=== PATIENT | female | born 1990 | race Caucasian/White ===

== ENCOUNTER → 2018-11-25 | Outpatient (CLI) | payer MEDICAID ==
--- NOTE | 2018-11-25 17:21 | RAD ---
EXAM: Pelvic sonogram. HISTORY: Uncertain dates. TECHNIQUE: Sonographic imaging of a gravid uterus was performed. COMPARISON: None. FINDINGS: There is a single fetus in breech presentation with a heart rate of 150 bpm. The biparietal diameter is 3.01 cm, corresponding with 15 weeks and 4 days. The head circumference is 11.73 cm, corresponding with 15 weeks and 5 days. The abdominal circumference is 10.01 cm, corresponding with 16 weeks and 0 days. The femoral length is 1.68 cm, corresponding with 15 weeks and 0 days. The estimated gestational age patient combined ultrasound measurements is 15 weeks and 4 days and the estimated due date is 05/15/2019. The cervix is obscured. There is a low-lying posterior placenta without evidence of placenta previa. The anechoic fluid volume is grossly normal. IMPRESSION: 1. Single intrauterine fetus with an estimated gestational age based on ultrasound measurements of 15 weeks and 4 days and heart rate of 150 bpm. 2. Low-lying placenta. Attention the time of follow-up for a formal anatomy survey at approximately 18-20 weeks gestation is recommended. Electronically signed by: Lesley Sullivan MD (11/25/2018 5:18 PM) [id number]
== END | disposition home or self-care (01) ==
LOC: US 16:05
PROVIDERS: ATTEND Obstetrics & Gynecology
DX: O44.42 Low lying placenta NOS or without hemorrhage, second trimester (principal); Z3A.15 15 weeks gestation of pregnancy
CPT/HCPCS: 76805

== ENCOUNTER → 2018-12-31 | Outpatient (CLI) | payer MEDICAID ==
--- NOTE | 2018-12-31 09:51 | RAD ---
EXAM: Obstetrics sonogram. HISTORY: anatomy survey. TECHNIQUE: Sonogram and imaging of a gravid uterus was performed. COMPARISON: 11/25/2018. FINDINGS: There is a single intrauterine fetus in breech presentation with a heart rate of 152 bpm. Three-vessel cord with normal insertion. There is a posterior placenta without evidence of placenta previa. The cervix is closed and measures 6.4 cm in length. The stomach, kidneys, bladder, spine, brain, facial profile and extremities are unremarkable. There is normal amniotic fluid index of 11.9 cm. The biparietal diameter is 4.8 cm, corresponding with 20 weeks and 4 days. The head circumference is 17.8 cm, corresponding with 20 weeks and 2 days. The abdominal circumference is 15.5 cm, corresponding with 20 weeks and 5 days. The femoral length is 2.9 cm, corresponding with 19 weeks and 1 day. The estimated gestational age patient combined also measurements is 20 weeks and 1 day. The estimated weight is 327 g and the estimated due date is 05/19/2019. IMPRESSION: 1. Intrauterine fetus in breech presentation with an estimated gestational age of 20 weeks and 1 day and heart rate of 152 bpm. 2. Unremarkable anatomy survey. Electronically signed by: Lesley Sullivan MD (12/31/2018 9:48 AM) [id number]
== END | disposition home or self-care (01) ==
LOC: US 06:59
PROVIDERS: ATTEND Obstetrics & Gynecology
DX: O32.1XX1 Maternal care for breech presentation, fetus 1 (principal); Z3A.20 20 weeks gestation of pregnancy
CPT/HCPCS: 76805